=== PATIENT | male | born 1945 | race Caucasian/White ===

== ENCOUNTER 2017-02-10 18:18 | Inpatient (IN) | payer MEDICARE, OTHER ==
[~2017-02-10] VITALS: Ht 175.3 cm; Wt 105.5 kg
[~2017-02-10 18:18] MED LIST: ASPI-664 PO; ATOR20TA38 PO; FURO40TA4 PO; GLIM4TAB PO; ISOS60TA PO; LOSA25TA5 PO; NIT4 SL; RIVA15TA PO; SPIR25TA PO
[2017-02-10] MEDS ORDERED: NITROGLYCERIN 2% 1 GM OINT PKT TD STA (18:28)
[2017-02-10] MEDS ORDERED: ASPIRIN 81 MG TAB PO STA (18:28)
[2017-02-10] MEDS ORDERED: NITROGLYCERIN (SL) 0.4 MG TAB SL PRN (18:30)
[2017-02-10 19:05] LABS: BASOPHIL # 0.1 10^3/ul (0.0-0.1); BASOPHILS % 0.7 % (0.0-2.0); EOSINOPHILS # 0.3 10^3/ul (0.0-0.5); EOSINOPHILS % 3.3 % (0.0-7.0); HEMOGLOBIN 15.7 g/dl (14.0-18.0); LYMPHOCYTES # 2.9 10^3/ul (0.8-2.9); LYMPHOCYTES % 34.7 % (15.0-51.0); MEAN CORPUSCULAR HGB CONC 33.4 g/dl (32.0-37.0); MEAN CORPUSCULAR VOLUME 95.9 fl (82.0-101.0); MEAN PLATELET VOLUME 11.4 fl (7.4-10.4); MONOCYTE # 0.7 10^3/ul (0.3-0.9); MONOCYTES % 8.4 % (0.0-11.0); NEUTROPHIL # 4.3 10^3/ul (1.6-7.5); NEUTROPHILS % 52.2 % (39.0-77.0); PLATELET COUNT 144 10^3/UL (140-415); RED CELL DISTRIBUTION WIDTH 13.6 % (11.5-14.5); WHITE BLOOD COUNT 8.3 10^3/ul (4.8-10.8)
[2017-02-10 19:19] LABS: ANION GAP 19 (8-16); BLOOD UREA NITROGEN 36 mg/dl (7-20); CALCIUM 8.8 mg/dl (8.4-10.2); CARBON DIOXIDE 24 mmol/L (21-31); CHLORIDE 107 mmol/L (97-110); CREATININE 1.48 mg/dl (0.61-1.24); GLUCOSE 204 mg/dl (70-220); POTASSIUM 4.3 mmol/L (3.5-5.1); SODIUM 146 mmol/L (135-144)
[2017-02-10 19:31] LABS: INR 1.17; PT RATIO 1.2
[2017-02-10 19:32] LABS: PARTIAL THROMBOPLASTIN TIME 30.5 Sec (25.0-35.0)
[2017-02-10 19:33] LABS: TROPONIN-I < 0.012 ng/ml (0.00-0.12)
--- NOTE | 2017-02-10 19:47 | ERA ---
ER Documentation Chief Complaint Date/Time DATE: 02/10/17 TIME: 19:45 Chief Complaint CHEST PAIN, SOB, ONSET 1 DAY HPI Patient is a 71-year-old male with coronary disease, hypertension, and diabetes who presents with chest pain. The chest pain started yesterday and has been constant. It is left-sided and associated with shortness of breath. The patient has had no treatment as of yet. Upon review of old medical records this is the patient's eighth visit to the ER since 2007. ROS All systems reviewed and are negative except as per history of present illness. Medications Home Meds Active Scripts Spironolactone* (Aldactone*) 25 Mg Tablet, 12.5 MG PO DAILY, #30 TAB Prov:DANNY LANE MD 04/11/16 Aspirin* (Aspirin* EC) 81 Mg Tablet.dr, 81 MG PO DAILY, #30 Prov:DANNY LANE MD 04/11/16 Rivaroxaban* (Xarelto*) 15 Mg Tablet, 15 MG PO WITH DINNER, #30 TAB Prov:DANNY LANE MD 04/11/16 Losartan Potassium* (Losartan Potassium*) 25 Mg Tablet, 25 MG PO BID, #60 TAB Prov:DANNY LANE MD 04/11/16 Nitroglycerin* (Nitrostat*) 0.4 Mg Tab.subl, 0.4 MG SL Q5MIN Y for CHEST PAIN, # 30 BOTTLE Prov:DANNY LANE MD 04/11/16 Atorvastatin Calcium* (Atorvastatin Calcium*) 20 Mg Tablet, 20 MG PO HS, #30 TAB Prov:DANNY LANE MD 04/11/16 Glimepiride* (Glimepiride*) 4 Mg Tablet, 4 MG PO DAILY, #30 TAB Prov:DANNY LANE MD 04/11/16 Isosorbide Mononitrate* (Isosorbide Mononitrate*) 60 Mg Tab.er.24h, 60 MG PO DAILY, #30 Prov:DANNY LANE MD 04/11/16 Furosemide (Lasix) 40 Mg Tab, 40 MG PO DAILY, #30 Prov:DANNY LANE MD 04/11/16 Allergies Allergies: Coded Allergies: No Known Allergy (Verified , 04/07/16) PMhx/Soc History of Surgery: Yes (CABG 2000) Anesthesia Reaction: No Hx Neurological Disorder: No Hx Respiratory Disorders: No Hx Cardiac Disorders: Yes (PACEMAKER INSERTION) Hx Psychiatric Problems: No Hx Miscellaneous Medical Probl: Yes (DYSLIPIDEMIA) Hx Alcohol Use: No Hx Substance Use: No Hx Tobacco Use: No FmHx Family History: coronary disease Physical Exam Vitals Vital Signs Date Time Temp Pulse Resp B/P Pulse Ox O2 Delivery O2 Flow Rate FiO2 02/10/17 18:51 64 18 145/88 94 02/10/17 18:21 98.4 72 17 134/70 96 Physical Exam Const: No acute distress Head: Atraumatic Eyes: Normal Conjunctiva ENT: Normal External Ears, Nose and Mouth. Neck: Full range of motion..~ No meningismus. Resp: Clear to auscultation bilaterally Cardio: Regular rate and rhythm, no murmurs Abd: Soft, non tender, non distended. Normal bowel sounds Skin: No petechiae or rashes Back: No midline or flank tenderness Ext: No cyanosis, or edema Neur: Awake and alert Psych: Normal Mood and Affect Result Diagram: 02/10/17183902/10/171839 Results 24 hrs Laboratory Tests Test 02/10/17 18:40 White Blood Count 8.310^3/ul Red Blood Count 4.9010^6/ul Hemoglobin 15.7g/dl Hematocrit 47.0% Mean Corpuscular Volume 95.9fl Mean Corpuscular Hemoglobin 32.0pg Mean Corpuscular Hemoglobin Concent 33.4g/dl Red Cell Distribution Width 13.6% Platelet Count 72489^3/UL Mean Platelet Volume 11.4fl Neutrophils % 52.2% Lymphocytes % 34.7% Monocytes % 8.4% Eosinophils % 3.3% Basophils % 0.7% Nucleated Red Blood Cells % 0.0/100WBC Neutrophils # 4.310^3/ul Lymphocytes # 2.910^3/ul Monocytes # 0.710^3/ul Eosinophils # 0.310^3/ul Basophils # 0.110^3/ul Nucleated Red Blood Cells # 0.010^3/ul Prothrombin Time 15.0Sec Prothrombin Time Ratio 1.2 INR International Normalized Ratio 1.17 Activated Partial Thromboplast Time 30.5Sec Sodium Level 146mmol/L Potassium Level 4.3mmol/L Chloride Level 107mmol/L Carbon Dioxide Level 24mmol/L Anion Gap 19 Blood Urea Nitrogen 36mg/dl Creatinine 1.48mg/dl Glucose Level 204mg/dl Calcium Level 8.8mg/dl Troponin I < 0.012ng/ml Current Medications Medications (Trade) Dose Ordered Sig/Canelo Route PRN Reason Start Time Stop Time Status Last Admin Dose Admin Aspirin (Aspirin) 162 mg ONCE STAT PO 02/10/17 18:28 02/10/17 18:29 DC 02/10/17 18:40 Nitroglycerin (Nitroglycerin 2% Oint) 1 inch ONCE STAT TD 02/10/17 18:28 02/10/17 18:29 DC 02/10/17 18:41 Nitroglycerin (Nitroglycerin (Sl Tab) 0.4 Mg) 1 tab Q5M UP TO 3 DOSES PRN SL CHEST PAIN 02/10/17 18:30 02/10/17 18:41 Ondansetron HCl (Zofran Inj) 4 mg ER BRIDGE PRN IV NAUSEA AND/OR VOMITING 02/10/17 20:00 02/11/17 19:59 Acetaminophen (Tylenol Tab) 650 mg ER BRIDGE PRN PO MILD PAIN/FEVER 02/10/17 20:00 02/11/17 19:59 Procedures/MDM EKG #1 read by me: Rate/Rhythm: Regular rate and rhythm at a normal rate Intervals: Normal Impression: Diffuse ST depression EKG #2 read by me: Rate/Rhythm: Regular rate and rhythm at a normal rate Intervals: Normal Impression: Diffuse ST depression Chest x-ray shows no obvious pneumonia or pneumothorax per radiology. Patient is a 71-year-old male with multiple cardiac risk factors who presents with chest pain. The patient was given aspirin and nitroglycerin empirically. His EKG shows diffuse ST depressions and I am concerned about ischemia. He has high risk for acute coronary syndrome. I doubt pneumonia, pneumothorax, pulmonary embolism, or aortic dissection. The patient will be admitted to a telemetry bed under the care of Dr. Finn from the panel team as he has care first and they have authorized admission to the panel team. Departure Diagnosis: Primary Impression: Chest pain Qualified Code: R07.9 - Chest pain, unspecified type Condition: CESAR Hairston MD Feb 10, 2017 19:47
[2017-02-10] MEDS ORDERED: ONDANSETRON 4 MG INJ IV PRN (20:00)
[2017-02-10] MEDS ORDERED: ACETAMINOPHEN 325 MG TAB PO PRN (20:00)
--- NOTE | 2017-02-10 20:07 | RADRPT ---
PROCEDURE: XR Chest. CLINICAL INDICATION: Chest Pain. TECHNIQUE: Single frontal view of the chest was obtained COMPARISON: 04/07/2016 FINDINGS: The patient is again noted to be status post median sternotomy. The previously noted left chest wall dual lead pacemaker is again seen. The heart remains enlarged. The lungs are grossly clear given a somewhat suboptimal inspiration. The pleural spaces are also grossly clear. The bones and soft tissue show no acute change. IMPRESSION: 1. Stable cardiomegaly. 2. Stable left chest wall dual lead pacemaker. 3. Evidence of previous median sternotomy. 4. Otherwise, no acute abnormalities are identified. RPTAT:AAJJ Physician Rell Date Time Electronically viewed and signed by Francisco Javier Casillas Physician on 02/10/2017 20:07 /
[2017-02-10 20:30] VITALS: TEMP 98.4
[2017-02-10 21:57] VITALS: PULSE 58
[2017-02-10 22:09] VITALS: Ht 175.3 cm; Wt 105.5 kg
[2017-02-11] VITALS (14 sets, daily range): BP systolic 106–131; BP diastolic 60–81; PULSE 52–88; RESP 15–20
[2017-02-11] MEDS ORDERED: ACETAMINOPHEN 325 MG TAB PO PRN (01:00)
[2017-02-11] MEDS ORDERED: NITROGLYCERIN (SL) 0.4 MG TAB SL PRN (01:00)
[2017-02-11] MEDS ORDERED: ONDANSETRON 4 MG INJ IV PRN (01:00)
[2017-02-11] MEDS ORDERED: morphine 2 MG INJ IV PRN (01:00)
[2017-02-11 01:38] LABS: TROPONIN-I 0.012 ng/ml (0.00-0.12)
[2017-02-11] MEDS: ACCU-CHEK XX SCH (01:43)
[2017-02-11 01:50] LABS: CK-MB 1.49 ng/ml (0.0-2.4)
--- NOTE | 2017-02-11 02:37 | HP ---
Date/Time of Note Date/Time of Note DATE: 02/11/17 TIME: 02:13 Assessment/Plan VTE Prophylaxis VTE Prophylaxis Intervention: other (Xarelto) Lines/Catheters IV Catheter Type (from Nrs): Saline Lock Assessment/Plan Chief Complaint/Hosp Course 1. Chest pain, rule out ACS -First 2 troponins so far are negative. EKG shows diffuse ST depression -Plan is to check 1 more troponin and continue home medications, which include Plavix, beta-bret, ACEI, statin and nitro. He will be placed on oxygen. -will obtain a 2D echo and place a cardiology consult 2. History of CAD status post CABG -Continue home medications 3. History of ischemic cardiomyopathy, with EF of 40% in 2016, s/p AICD -Management as above 4. History of A. fib, currently in sinus -Continue beta-bret and Xarelto 5. Hypertension -Continue home meds with adjustment as needed 6. Type 2 diabetes -will check A1c in a.m. -Insulin while in-house 7. Dyslipidemia -We will check lipid panel. Continue statin 8. CKD -Monitor kidney function. Avoid nephrotoxins. Will place a nephrology consult 9. History of liver cirrhosis, likely secondary to hep B -No sign of decompensation or ascites on physical exam. Denied GI bleed -Continue Lasix and Aldactone 10. Mild hypernatremia -Monitor for now. Will check a.m. lab DVT ppx: Continue home Xarelto GI ppx: We will place on PPI, especially given he is on antiplatelets and a blood thinner Problems: HPI/ROS Admit Date/Time Admit Date/Time Feb 10, 2017 at 19:36 Hx of Present Illness This is a 71-year-old male with past medical history of coronary artery disease status post CABG, ischemic cardiomyopathy, AICD placement, atrial fibrillation, hypertension, dyslipidemia, liver cirrhosis and history of hepatitis B, who presents to [facility] c/o chest pain 1 day. Pain is left- sided, nonradiating and associated with shortness of breath. Denied palpitations, lightheadedness, nausea, vomiting or diaphoresis. When presented to the ER, vitals were within acceptable range. Lab shows a sodium of 146, BUN 36, creatinine 1.48 otherwise the rest of CBC and a CMP are within acceptable range. First 2 troponins so far are negative. EKG shows diffuse ST depression. Chest x-ray shows clear lungs. He was given nitro and aspirin in the ER. Patient was last admitted here in 2016 for chest pain. At that time she was seen by the graphic design manager, Dr. Cooley and had a 2D echo which showed EF of 40% and also had a Lexiscan nuclear stress test with the following results: 1. Baseline EKG showed atrial fibrillation, marked ST-T abnormality and inferolateral ischemia. Heart rate at baseline is 62, blood pressure 127/64, heart rate at peak of stress is 85. 2. No significant ischemic ST changes noted from the baseline abnormalities. 3. No significant arrhythmia is noted from the baseline atrial fibrillation. . PMH/Family/Social Past Medical History coronary artery disease status post CABG, ischemic cardiomyopathy, AICD placement, atrial fibrillation, hypertension, dyslipidemia, liver cirrhosis, hep B . Past Surgical History Past Surgical Hx: coronary bypass surgery Social History Alcohol Use: none Smoking Status: Never smoker Drug Use: none Exam/Review of Systems Vital Signs Vitals Vital Signs Date Time Temp Pulse Resp B/P Pulse Ox O2 Delivery O2 Flow Rate FiO2 02/11/17 00:32 98.0 63 18 129/62 98 02/10/17 20:30 Room Air 02/10/17 19:50 2 Exam Constitutional: alert, oriented Head: atraumatic, normocephalic Eyes: EOMI, PERRL Respiratory: clear to auscultation, normal air movement Cardiovascular: nl pulses, regular rate and rhythm Gastrointestinal: non-tender, soft Extremities: normal pulses Labs Result Diagram: 02/10/17 18402/10/17 184 Medications Medications Current Medications Ondansetron HCl (Zofran Inj) 4 mg Q6H PRN IV NAUSEA AND/OR VOMITING; Start 02/11 at 01:00 Morphine Sulfate (morphine) 2 mg Q4H PRN IV chest pain; Start 02/11/17 at 01:00 Acetaminophen (Tylenol Tab) 650 mg Q6H PRN PO PAIN AND OR ELEVATED TEMP; Start 02/11/17 at 01:00 Insulin Glargine (Lantus) 10 unit DAILY@08 SC ; Start 02/11/17 at 08:00 Diagnostic Test (Pha) (Accu-Chek) 1 ea 02 XX ; Start 02/11/17 at 02:00 Aspirin (Halfprin) 81 mg DAILY PO ; Start 02/11/17 at 09:00 Atorvastatin Calcium (Lipitor) 20 mg HS PO ; Start 02/11/17 at 21:00 Furosemide (Lasix) 40 mg DAILY PO ; Start 02/11/17 at 09:00 Isosorbide Mononitrate (Imdur) 60 mg DAILY PO ; Start 02/11/17 at 09:00 Losartan Potassium (Cozaar) 25 mg BID PO ; Start 02/11/17 at 09:00 Nitroglycerin (Nitroglycerin (Sl Tab) 0.4 Mg) 0.4 tab Q5M PRN SL CHEST PAIN; Start 02/11/17 at 01:00 Spironolactone (Aldactone) 12.5 mg DAILY PO ; Start 02/11/17 at 09:00 TATE CHANCE MD Feb 11, 2017 02:31
[2017-02-11 06:45] LABS: BASOPHIL # 0.1 10^3/ul (0.0-0.1); BASOPHILS % 0.9 % (0.0-2.0); EOSINOPHILS # 0.3 10^3/ul (0.0-0.5); EOSINOPHILS % 3.3 % (0.0-7.0); HEMATOCRIT 50.8 % (42.0-52.0); HEMOGLOBIN 16.3 g/dl (14.0-18.0); LYMPHOCYTES # 2.4 10^3/ul (0.8-2.9); LYMPHOCYTES % 27.3 % (15.0-51.0); MEAN CORPUSCULAR HGB CONC 32.1 g/dl (32.0-37.0); MEAN CORPUSCULAR VOLUME 96.8 fl (82.0-101.0); MONOCYTE # 0.8 10^3/ul (0.3-0.9); MONOCYTES % 8.9 % (0.0-11.0); NEUTROPHIL # 5.2 10^3/ul (1.6-7.5); NEUTROPHILS % 58.8 % (39.0-77.0); PLATELET COUNT 133 10^3/UL (140-415); POSITIVE DIFF @See below; RED BLOOD COUNT 5.25 10^6/ul (4.70-6.10); RED CELL DISTRIBUTION WIDTH 13.7 % (11.5-14.5); WHITE BLOOD COUNT 8.8 10^3/ul (4.8-10.8)
[2017-02-11 07:12] LABS: ALBUMIN 4.2 g/dl (3.3-4.9); ALBUMIN/GLOBULIN RATIO 1.2; BILIRUBIN,INDIRECT 0.3 mg/dl (0-1.1); BILIRUBIN,TOTAL 0.3 mg/dl (0.2-1.3); CALCIUM 9.2 mg/dl (8.4-10.2); CREATININE 1.23 mg/dl (0.61-1.24); MAGNESIUM 2.1 mg/dl (1.7-2.5); PHOSPHORUS 3.5 mg/dl (2.5-4.9); POTASSIUM 4.3 mmol/L (3.5-5.1); TOTAL PROTEIN 7.7 g/dl (6.1-8.1)
[2017-02-11 07:16] LABS: TROPONIN-I 0.025 ng/ml (0.00-0.12)
[2017-02-11 07:25] LABS: CK-MB 1.88 ng/ml (0.0-2.4)
[2017-02-11] MEDS: INSULIN ASPART [NOVOLOG] 3 ML PEN SC SCH ×4 (07:55→21:00)
--- NOTE | 2017-02-11 09:05 | CONS ---
DATE OF ADMISSION: 02/10/2017 DATE OF CONSULTATION: 02/11/2017 REASON FOR CONSULTATION: Acute kidney injury. REQUESTING PHYSICIAN: Dr. Finn. HISTORY OF PRESENT ILLNESS: This is a 71-year-old male with a past medical history of coronary disease status post CABG, history of cardiomyopathy, history of AICD placement, history of liver cirrhosis, history of diabetes, hypertension, AFib, who presents to [facility] with chest pain. The patient the pains were left-sided, nonradiating, shortness of breath. As a result, he came to the emergency room and upon arrival, the patient had a chest x-ray, which showed no acute findings. The patient's laboratory data showed a BUN 36, creatinine 1.48, and sodium 146. In the emergency room patient was given aspirin, nitroglycerin and admitted to Telemetry for evaluation. In terms of patient's renal history, the patient appears to have underlying chronic kidney disease with baseline creatinine ranging from 1.2-1.4 mg/dL. Patient is on diuretic therapy and ARB in an outpatient setting. He denies any hemoptysis symptoms or hematochezia. PAST MEDICAL HISTORY: As stated above. History of coronary artery disease, CABG, cardiomyopathy, AFib, hypertension, diabetes, cirrhosis, hepatitis. PAST SURGICAL HISTORY: CABG. SOCIAL HISTORY: Does not actively drink, smoke or do drugs. MEDICATION: Reviewed. FAMILY HISTORY: Noncontributory. ALLERGIES: NONE. REVIEW OF SYSTEMS: 14-point review of systems conducted. Pertinent positives in HPI, otherwise negative. PHYSICAL EXAMINATION: VITAL SIGNS: Blood pressure is 131/71, respirations 19, pulse 50, temperature 98.0 HEENT: Head is normocephalic. Pupils are reactive to light. NECK: Supple. HEART: Regular rate. LUNGS: Diminished breath sounds at the base. ABDOMEN: Soft, nontender to palpation. No rebound or guarding. EXTREMITIES: Negative for clubbing, cyanosis, no edema. DERMATOLOGIC: No rashes. MUSCULOSKELETAL: No joint effusions. NEUROLOGIC: No focal deficits. LABORATORY: Sodium 145, potassium 4.3, BUN 33, creatinine 1.23. White count 8.9, hemoglobin 16.3, platelet count 133. ASSESSMENT AND PLAN: This is a 71-year-old male presents with: 1. Nonoliguric acute kidney injury on top of chronic kidney disease stage 3 with baseline creatinine 1.2 and 1.4 mg/dL. Etiology of acute kidney injury is likely secondary to hemodynamics, diuretics, ARB effect. The patient's renal function has improved with supportive care. At this point, continue current treatment plan. Will do a full evaluation by checking a UA with microanalysis. We will check urine electrolytes. Would continue ARB and diuretic therapy at this time. Would otherwise continue supportive care. Renally dose medications for nephrotoxins. 2. Hyponatremia. Patient has a free water deficit of approximately 1 L. Will encourage free water intake. 3. Mineral bone disorder. Monitor calcium and phosphorus levels. 4. Chest pain. Patient being ruled out for acute coronary syndrome. Continue to check serial troponins. 5. History of chronic disease, cardiomyopathy. Continue current medical management. Follow up Cardiology. 6. AFib, currently in sinus rhythm. Continue medical management. 7. Hypertension. Blood pressure controlled. Continue current treatment plan. 8. Continue statin therapy. 9. History of cirrhosis. The patient appears compensated. Continue current medical management. Thank you, Dr. Finn for this interesting consult. It will be a pleasure to follow the patient with you throughout the hospital course. Dictated By: Lenny Jacob DO /terell/raciel /Document#: [id number]
[2017-02-11] MEDS: SPIRONOLACTONE 25 MG TAB PO SCH (09:13)
[2017-02-11] MEDS: FUROSEMIDE 40 MG TAB PO SCH (09:14)
[2017-02-11] MEDS: ASPIRIN (EC) 81 MG TAB PO SCH (09:14)
[2017-02-11] MEDS: ISOSORBIDE MONONITRATE(SR)60 MG TAB PO SCH (09:14)
[2017-02-11] MEDS: LOSARTAN 25 MG TAB PO SCH ×2 (09:15→22:01)
[2017-02-11] MEDS ORDERED: DEXTROSE 50% 50 ML SYRINGE IV PRN ×2 (10:00)
[2017-02-11] MEDS ORDERED: GLUCOSE GEL 15 GRAM TUBE PO PRN ×2 (10:00)
[2017-02-11] MEDS ORDERED: GLUCOSE GEL 15 GRAM TUBE BUCCAL PRN (10:00)
[2017-02-11] MEDS ORDERED: GLUCAGON 1 MG INJ IM PRN (10:00)
[2017-02-11] MEDS: INSULIN GLARGINE [LANtus] 3 ML PEN SC SCH (10:17)
--- NOTE | 2017-02-11 10:48 | PN ---
Date/Time of Note Date/Time of Note DATE: 02/11/17 TIME: 10:40 Assessment/Plan VTE Prophylaxis VTE Prophylaxis Intervention: other (Xarelto) Lines/Catheters IV Catheter Type (from Nrs): Saline Lock Assessment/Plan Chief Complaint/Hosp Course 1. Chest pain. Rule out acute coronary syndrome. So far negative troponin. Pending echocardiogram. -Continue aspirin, nitro SL PRN, morphine PRN -Pending cardiology eval 2.History of CAD status post CABG -On aspirin, and Plavix, beta-bret, ACEI, statin 3. History of ischemic cardiomyopathy, with EF of 40% in 2016, s/p AICD -Management as above 4. History of A. fib. -Continue beta-bret and Xarelto 5. Hypertension -Continue home meds with adjustment as needed 6. Type 2 diabetes -Accuchecks/ insulin sliding scale. Follow-up A1c. 7. Dyslipidemia -On statin. Follow-up lipid panel 8. Acute kidney injury on CKD -Monitor kidney function. Avoid nephrotoxins. Nephrology on board and will follow recommendations. 9. History of liver cirrhosis, likely secondary to hep B -No sign of decompensation or ascites on physical exam. -Continue Lasix and Aldactone DVT ppx: Patient already on Zaroxolyn. No further anticoagulation indicated Continue current medical management. Follow-up with cardiology recommendation. Case discussed with Problems: Subjective 24 Hr Interval Summary Free Text/Dictation He still reports left-sided chest pain. Denies palpitation, dizziness, shortness of breath, nausea, vomiting or other constitutional symptoms. EKG has been V-Paced Exam/Review of Systems Vital Signs Vitals Vital Signs Date Time Temp Pulse Resp B/P Pulse Ox O2 Delivery O2 Flow Rate FiO2 02/11/17 08:17 60 02/11/17 07:31 98.0 19 131/81 95 02/10/17 20:30 Room Air 02/10/17 19:50 2 Intake and Output 02/10/17 02/10/17 02/11/17 15:00 23:00 07:00 Intake Total 360 ml Output Total 400 ml Balance -40 ml Exam General: M[place] male, not in any acute distress . HEENT: Normocephalic, Atraumatic, No laceration or hematoma; Eyes: PEERL, Conjunctiva clear, Anicteric sclera Neck: Supple without any lymphadenopathy, nontender, no JVD, no carotid bruits, trachea midline, no thyromegaly Cardiac: Paced beats, regular rhythm and rate, no mumurs or gallop Pulmonary: Normal respiratory effort. Chest clear to auscultation bilaterally, no adventitious breath sounds GI: Abdomen normal to inspection. Soft, non tender, non- distended, no masses, no rebound tenderness or guarding. Bowel sounds active on all four quadrants Genitourinary: Deferred Extremities: No cyanosis, clubbing, or edema. Pulses [2+] bilaterally. Full ROM on all four extremities. No focal weakness appreciated. Neurologic: Alert to person, place, time, and situation. Affect appropriate, intact sensation. Skin: Clean,dry, and intact. No ecchymosis, no rashes, or lesions Results Result Diagram: 02/11/1717 02/11/1718 Results 24 hrs Laboratory Tests Test 02/10/17 18:40 02/11/17 00:35 02/11/17 06:17 02/11/17 06:18 White Blood Count 8.3 8.8 Red Blood Count 4.90 5.25 Hemoglobin 15.7 16.3 Hematocrit 47.0 50.8 Mean Corpuscular Volume 95.9 96.8 Mean Corpuscular Hemoglobin 32.0 31.0 Mean Corpuscular Hemoglobin Concent 33.4 32.1 Red Cell Distribution Width 13.6 13.7 Platelet Count 144 133 L Mean Platelet Volume 11.4 H 11.0 H Neutrophils % 52.2 58.8 Lymphocytes % 34.7 27.3 Monocytes % 8.4 8.9 Eosinophils % 3.3 3.3 Basophils % 0.7 0.9 Nucleated Red Blood Cells % 0.0 0.0 Neutrophils # 4.3 5.2 Lymphocytes # 2.9 2.4 Monocytes # 0.7 0.8 Eosinophils # 0.3 0.3 Basophils # 0.1 0.1 Nucleated Red Blood Cells # 0.0 0.0 Prothrombin Time 15.0 H Prothrombin Time Ratio 1.2 INR International Normalized Ratio 1.17 Activated Partial Thromboplast Time 30.5 Sodium Level 146 H 145 H Potassium Level 4.3 4.3 Chloride Level 107 102 Carbon Dioxide Level 24 28 Anion Gap 19 H 19 H Blood Urea Nitrogen 36 H 33 H Creatinine 1.48 H 1.23 Glucose Level 204 140 # Calcium Level 8.8 9.2 Troponin I < 0.012 0.012 0.025 Creatine Kinase 132 139 Creatine Kinase Index 1.1 1.4 Creatinine Kinase MB (Mass) 1.49 1.88 Hemoglobin A1c 6.9 H Phosphorus Level 3.5 Magnesium Level 2.1 Total Bilirubin 0.3 Direct Bilirubin 0.00 Indirect Bilirubin 0.3 Aspartate Amino Transf (AST/SGOT) 26 Alanine Aminotransferase (ALT/SGPT) 38 Alkaline Phosphatase Pending Total Protein 7.7 Albumin 4.2 Globulin 3.50 H Albumin/Globulin Ratio 1.20 Triglycerides Level 319 H Cholesterol Level 191 LDL Cholesterol, Calculated 89 HDL Cholesterol 38 Cholesterol/HDL Ratio 5.0 Test 02/11/17 07:53 Bedside Glucose 133 Medications Medications Current Medications Ondansetron HCl (Zofran Inj) 4 mg Q6H PRN IV NAUSEA AND/OR VOMITING; Start 02/11 at 01:00 Morphine Sulfate (morphine) 2 mg Q4H PRN IV chest pain; Start 02/11/17 at 01:00 Acetaminophen (Tylenol Tab) 650 mg Q6H PRN PO PAIN AND OR ELEVATED TEMP; Start 02/11/17 at 01:00 Insulin Glargine (Lantus) 10 unit DAILY@08 SC Last administered on 02/11/17 10: 17; Admin Dose 10 UNIT; Start 02/11/17 at 08:00 Diagnostic Test (Pha) (Accu-Chek) 1 ea 02 XX ; Start 02/11/17 at 02:00 Aspirin (Halfprin) 81 mg DAILY PO Last administered on 02/11/17 09:14; Admin Dose 81 MG; Start 02/11/17 at 09:00 Atorvastatin Calcium (Lipitor) 20 mg HS PO ; Start 02/11/17 at 21:00 Furosemide (Lasix) 40 mg DAILY PO Last administered on 02/11/17 09:14; Admin Dose 40 MG; Start 02/11/17 at 09:00 Isosorbide Mononitrate (Imdur) 60 mg DAILY PO Last administered on 02/11/17 09: 14; Admin Dose 60 MG; Start 02/11/17 at 09:00 Losartan Potassium (Cozaar) 25 mg BID PO Last administered on 02/11/17 09:15; Admin Dose 25 MG; Start 02/11/17 at 09:00 Nitroglycerin (Nitroglycerin (Sl Tab) 0.4 Mg) 0.4 tab Q5M PRN SL CHEST PAIN; Start 02/11/17 at 01:00 Spironolactone (Aldactone) 12.5 mg DAILY PO Last administered on 02/11/17t 09:13 ; Admin Dose 12.5 MG; Start 02/11/17 at 09:00 Miscellaneous Information 1 ea NOTE XX ; Start 02/11/17 at 10:00 Glucose (Glutose) 15 gm Q15M PRN PO DECREASED GLUCOSE; Start 02/11/17 at 10:00 Glucose (Glutose) 22.5 gm Q15M PRN PO DECREASED GLUCOSE; Start 02/11/17 at 10:00 Dextrose (D50w Syringe) 25 ml Q15M PRN IV DECREASED GLUCOSE; Start 02/11/17 at 10:00 Dextrose (D50w Syringe) 50 ml Q15M PRN IV DECREASED GLUCOSE; Start 02/11/17 at 10:00 Glucagon (Glucagen) 1 mg Q15M PRN IM DECREASED GLUCOSE; Start 02/11/17 at 10:00 Glucose (Glutose) 15 gm Q15M PRN BUCCAL DECREASED GLUCOSE; Start 02/11/17 at 10: 00 SHERRY KNIGHT NP Feb 11, 2017 10:48
--- NOTE | 2017-02-11 15:48 | RADRPT ---
Echocardiogram Report Patient Name: KACEY HERNANDEZ Gender: Male Date: 1945 Study Date: 11-Feb-2017 Otc Clerk: Bobby Gaston [facility] Location: [id number] Ref. Physician: NYA GUTIERREZ Quality: Adequate Procedures: Transthoracic echocardiogram with complete 2D, M-Mode, and doppler examination. Indications: Evaluate Left Ventricular function. 2D/M Mode Doppler Measurement Value Normal Ranges Measurement Value Normal Ranges LVIDd 2D 5.2 3.5 - 5.6 cm AV Peak Doug 1.0 m/sec LVIDs 2D 4.1 2.1 - 4.1 cm AV Peak PG 4.0 mmHg FS 2D 20.9 % LVOT Peak Doug 0.9 m/sec LVPWd 2D 1.3 0.6 - 1.1 cm LVOT Peak PG 3.0 mmHg IVSd 2D 1.3 0.6 - 1.1 cm MV E Peak Doug 0.7 m/sec IVS/LVPW 2D 1.0 MV A Peak Doug 0.4 m/sec AoR Diam 2D 3.5 2.0 - 3.7 cm MV E/A 2.0 LA/Ao 2D 1 0 - 1 MV Decel Time 250 msec EDV 2D 141.0 cm3 MV E/A 2.0 ESV 2D 69.9 cm3 TR Peak Doug 2.6 m/sec LA Dimen 2D 4.7 2.3 - 4.0 cm TR Peak PG 26.0 mmHg RVSP 36.0 mmHg Findings Left Ventricle: Normal left ventricular cavity size. Mild concentric left ventricular hypertrophy. Moderate global left ventricular systolic dysfunction. Ejection fraction is visually estimated at 3040 %. Abnormal Diastolic Function. Right Ventricle: Normal right ventricular size. Normal right ventricular systolic function. Pacemaker right heart. Left Atrium: There is moderate enlargement of left atrium. Right Atrium: There is mild enlargement of right atrium. Mitral Valve: Mild mitral leaflet calcification. Mild mitral annular calcification. Trace mitral regurgitation. Aortic Valve: Aortic sclerosis without stenosis. Aortic valve opens normally. Trace aortic valve regurgitation. Tricuspid Valve: Normal appearance of the tricuspid valve. Estimated peak PA systolic pressure 36 mmHg. There is mild tricuspid regurgitation. Pulmonic Valve: Pulmonic valve not well visualized. There is trace pulmonic regurgitation. Pericardium: Normal pericardium with no significant pericardial effusion. Aorta: Normal aortic root. IVC: Normal size and normal respiratory collapse consistent with normal right atrial pressure. Conclusions 1.Normal left ventricular cavity size. Mild concentric left ventricular hypertrophy. Moderate global left ventricular systolic dysfunction. Ejection fraction is visually estimated at 30-40 %. Abnormal Diastolic Function. 2.There is moderate enlargement of left atrium. 3.There is mild enlargement of right atrium. 4.Mild mitral leaflet calcification. Mild mitral annular calcification. Trace mitral regurgitation. 5.Normal appearance of the tricuspid valve. Estimated peak PA systolic pressure 36 mmHg. There is mild tricuspid regurgitation. 6.Aortic sclerosis without stenosis. Aortic valve opens normally. Trace aortic valve regurgitation. Electronically Signed By: Matthew Cooley 11-Feb-2017 15:47:36 -0700 Patient Name: KACEY HERNANDEZ Study Date: 11-Feb-2017 [id number]
[2017-02-11 17:11] LABS: ADD UMIC YES; UR ASCORBIC ACID NEGATIVE (NEGATIVE); UR BILIRUBIN (Dip) NEGATIVE (NEGATIVE); UR BLOOD (Dip) NEGATIVE (NEGATIVE); UR CLARITY CLEAR (CLEAR); UR COLOR STRAW (YELLOW); UR GLUCOSE (Dip) 2+ mg/dL (NEGATIVE); UR KETONES (Dip) NEGATIVE (NEGATIVE); UR LEUKOCYTE ESTERASE (Dip) 2+ Leu/ul (NEGATIVE); UR NITRITE (Dip) NEGATIVE (NEGATIVE); UR RBC 1 /HPF (0-5); UR TOTAL PROTEIN (Dip) NEGATIVE (NEGATIVE); UR UROBILINOGEN (Dip) NEGATIVE (NEGATIVE)
[2017-02-11] MEDS ORDERED: RIVAROXABAN 15 MG TABLET PO SCH (17:55)
[2017-02-11] MEDS ORDERED: ATORVASTATIN 20 MG TAB PO SCH (21:00)
[2017-02-12] VITALS (8 sets, daily range): BP systolic 115–140; BP diastolic 67–82; PULSE 60–85; RESP 17–20
[2017-02-12] MEDS: ACCU-CHEK XX SCH (00:12)
[2017-02-12 06:30] LABS: BASOPHIL # 0.1 10^3/ul (0.0-0.1); BASOPHILS % 0.7 % (0.0-2.0); EOSINOPHILS # 0.3 10^3/ul (0.0-0.5); EOSINOPHILS % 3.5 % (0.0-7.0); HEMATOCRIT 49.7 % (42.0-52.0); HEMOGLOBIN 16.5 g/dl (14.0-18.0); LYMPHOCYTES # 2.8 10^3/ul (0.8-2.9); LYMPHOCYTES % 34.3 % (15.0-51.0); MEAN CORPUSCULAR HEMOGLOBIN 31.5 pg (29.0-33.0); MEAN CORPUSCULAR HGB CONC 33.2 g/dl (32.0-37.0); MEAN PLATELET VOLUME 11.3 fl (7.4-10.4); MONOCYTE # 0.6 10^3/ul (0.3-0.9); MONOCYTES % 6.8 % (0.0-11.0); NEUTROPHIL # 4.5 10^3/ul (1.6-7.5); PLATELET COUNT 135 10^3/UL (140-415); POSITIVE DIFF @See below; RED BLOOD COUNT 5.23 10^6/ul (4.70-6.10); RED CELL DISTRIBUTION WIDTH 13.6 % (11.5-14.5); WHITE BLOOD COUNT 8.3 10^3/ul (4.8-10.8)
[2017-02-12 06:54] LABS: CALCIUM 9.2 mg/dl (8.4-10.2); CREATININE 1.29 mg/dl (0.61-1.24); PHOSPHORUS 3.4 mg/dl (2.5-4.9); POTASSIUM 4.4 mmol/L (3.5-5.1)
[2017-02-12] MEDS: INSULIN ASPART [NOVOLOG] 3 ML PEN SC SCH ×2 (07:55→11:50)
--- NOTE | 2017-02-12 07:59 | CONS ---
DATE OF ADMISSION: 02/10/2017 DATE OF CONSULTATION: 02/11/2017 CARDIOLOGY CONSULTATION REFERRING PHYSICIAN: Dr. Finn REASON FOR CONSULTATION: Chest pain, abnormal EKG. HISTORY OF PRESENT ILLNESS: Thank you for the courtesy to see your patient. He is an extremely poor historian, is here with his . Discussion with the patient's regular thermal intelligence analyst, and review of the old chart. This is a pleasant 71-year-old Romanian gentleman with an extensive history of coronary artery disease who was recently complaining of chest pain. The patient said that he had chest pain, sharp, left- sided, poking yesterday. The pain has resolved now. The patient says that he follows regularly with his thermal intelligence analyst, he could not remember the name, but as spoke with his , explained that it is which I spoke to personally. The patient's pain has resolved. Now denies any dyspnea, PND, orthopnea to me at this point. He has been ruled out already for myocardial infarction, wants to go home. PAST MEDICAL HISTORY: 1. History of coronary artery disease status post coronary artery bypass graft in [facility]. 2. History of ICD placement. 3. Ischemic cardiomyopathy. 4. Congestive heart failure. 5. Dyslipidemia. 6. Atrial fibrillation. 7. Cirrhosis. 8. Hepatitis. MEDICATION: As per medication reconciliation list. Reviewed. SOCIAL HISTORY: The patient has quit smoking in 2000. ALLERGIES: NO REPORTED DRUG ALLERGIES. FAMILY HISTORY: Denies any history of early coronary artery disease. PAST SURGICAL HISTORY: 1. He is status post bypass surgery in [facility]. 2. Coronary angiography done here a few years ago by myself. 3. History of possibly PCI about a year ago per his 's report. REVIEW OF SYSTEMS: As above mentioned. PHYSICAL EXAMINATION: VITAL SIGNS: Temperature 98.1, heart rate 67, blood pressure 106/70, respiratory rate of 20, sating 94%. GENERAL: Normocephalic, atraumatic. Obese gentleman. HEENT: Pupils equal. CARDIAC: Irregular irregular. Systolic murmur. CHEST: No wheeze or rhonchi. ABDOMEN: Soft, nontender. EXTREMITIES: No edema. NEUROLOGIC: He is awake, alert, responsive, appropriate. PSYCH: Calm and pleasant. LABORATORY: Sodium 145, potassium 4.3, BUN 33, creatinine 1.23, glucose 140, hemoglobin 6.9. Troponins have been negative x3. Cholesterol 191, LDL 89, HDL 38. Triglycerides of 319. TSH is 2.3. EKG showed atrial fibrillation with marked inferolateral ischemia. Review of the old chart shows the patient's EKG on 04/09/2016 also at that time was read per . was also stated the patient had atrial fibrillation, moderate ST-T wave abnormalities, possible inferolateral injury, ischemia, abnormal EKG. Echocardiogram showed ejection fraction of 30-40% but technically difficult study. Review of the old chart showed the stress test done April 2016 had shown ejection fraction between 20-50%. There is a moderate sized nonreversible defect in the inferolateral lei. Review of the old chart shows that the patient had angiography done by myself in April 2013 which showed left vein was a large vessel. LAD had fluid at the mid level. MITCHELL to the LAD was patent. LAD however becomes very small after that. MITCHELL was also and diffuse disease noted. Left circumflex artery was not dominant. Proximally had about 90% stenosis. First obtuse marginal had 95% stenosis. Saphenous vein graft to the diagonal appeared to be patent. Saphenous vein to the obtuse marginal also appeared to be patent. Right coronary artery stent appeared to be patent. Has right to left collaterals. ASSESSMENT AND PLAN: 1. Chest pain syndrome. Myocardial infarction was ruled out. 2. History of coronary artery disease, status post coronary artery bypass. 3. History of PCI. 4. Diabetes. 5. Dyslipidemia. 6. Hypertension. 7. Congestive heart failure, chronic, secondary to systolic heart failure. 8. Ischemic cardiomyopathy with abnormal EKG and some atrial fibrillation. RECOMMENDATION: The patient multiple cardiac enzymes which have been negative. At this point he is chest pain free and he wants to go home. At this point I agree to discharge the patient home. I discussed with his thermal intelligence analyst as well. The patient to follow up with his thermal intelligence analyst within the next 1 or 2 days for further workup. Thank you for this referral. Dictated By: Matthew Cooley MD /[email or web address]/raciel /Document#: [id number] CC: Francisco Finn MD;*End*
[2017-02-12] MEDS: INSULIN GLARGINE [LANtus] 3 ML PEN SC SCH (08:42)
--- NOTE | 2017-02-12 09:29 | PN ---
DATE: 02/12/2017 SUBJECTIVE DATA: The patient is stable. No acute events overnight. No longer complaining of chest pain. OBJECTIVE DATA: VITAL SIGNS: Blood pressure 140/81, respirations 19, pulse 67, temperature 97.9. HEENT: Head is normocephalic. NECK: Supple. HEART: Regular rate. LUNGS: Diminished breath sounds at the base. ABDOMEN: Soft, nontender to palpation. No rebound or guarding. EXTREMITIES: Negative for clubbing, cyanosis. No edema. DERMATOLOGIC: No rashes. MUSCULOSKELETAL: No joint effusion. NEUROLOGIC: No change in exam. The patient's medications have been reviewed. LABORATORY AND DIAGNOSTIC DATA: Sodium 141, potassium 4.4. BUN 28, creatinine 1.29. CBC within normal limits. Urinalysis shows a FENa of greater than 1 percent. No significant proteinuria. The patient has noted pyuria. ASSESSMENT AND PLAN: 1. Nonoliguric acute kidney injury on top of chronic kidney disease, stage 2, with previous baseline creatinine 1.2 to 1.4 mg/dL. Etiology is likely multifactorial secondary to hemodynamics, diuretics, and angiotensin receptor bret effect. The patient's renal function is fluctuating but overall stable around previous baseline. At this point continue current treatment plan. Continue supportive care and renally dose all medications. Please note, the patient's urinalysis shows evidence of pyuria, possibility of a urinary infection. Otherwise, the patient had a bland sediment. 2. Hypernatremia, improved. Continue to encourage free water intake. 3. Mineral bone disorder. Continue to monitor calcium and phosphorus levels. 4. Chest pain. The patient has been ruled out for acute coronary syndrome. Follow up with Cardiology. 5. History of cardiomyopathy. Continue current medical management. 6. Atrial fibrillation, currently in sinus rhythm. Continue current treatment plan. 7. Hypertension. Continue current blood pressure regimen. 8. Dyslipidemia. Continue statin therapy. 9. History of cirrhosis. The patient appears compensated. Continue current medical management. Dictated By: Lenny Jacob DO /terell/yaron /Document#: [id number]
[2017-02-12] MEDS: FUROSEMIDE 40 MG TAB PO SCH (10:19)
[2017-02-12] MEDS: SPIRONOLACTONE 25 MG TAB PO SCH (10:20)
[2017-02-12] MEDS: LOSARTAN 25 MG TAB PO SCH (10:20)
[2017-02-12] MEDS: ASPIRIN (EC) 81 MG TAB PO SCH (10:20)
[2017-02-12] MEDS: ISOSORBIDE MONONITRATE(SR)60 MG TAB PO SCH (10:21)
--- NOTE | 2017-02-12 12:50 | PDOCDIS ---
Discharge Instructions CONDITION Patient Condition: Stable HOME CARE INSTRUCTIONS: Special Diet: carb controlled FOLLOW UP/APPOINTMENTS Follow-up Plan 1.Follow up with primary care physician in 1 week If you don't have one please let someone know, we can give you resources that may help you pick one. You may also call your insurance company to assign one to you. Review your medication list with your nurse before leaving and if you need new prescriptions please let your nurse know. I may have made changes to your home medications or given you new prescriptions, please let your primary doctor know as well. Stay compliant with your medications and report any side effects to your PCP or pharmacist. Return to the ER if you have any concerns and cannot reach your doctors or call your insurance company, they usually have a nurse that can help you. 2. Call 911 or go to the nearest emergency room if experiencing loss of consciousness, dizziness, chest pain, shortness of breath, vomiting/abdominal pain, speech difficulties, motor weakness or any unusual symptoms. 3.Follow-up with outpatient chlorinator operator in 2 days SHERRY KNIGHT NP Feb 12, 2017 12:50
[2017-02-12 15:15] LABS: MICROALBUMIN 0.5 mg/dL
--- NOTE | 2017-02-12 15:48 | DS ---
Date/Time of Note Date/Time of Note DATE: 02/12/17 TIME: 15:43 Discharge Summary Admission/Discharge Info Admit Date/Time Feb 10, 2017 at 19:36 Discharge Date/Time Feb 12, 2017 at 13:49 Discharge Diagnosis 1. Chest pain, likely musculoskeletal. Resolved. ACS ruled out 2.History of CAD status post CABG 3. History of ischemic cardiomyopathy, with EF of 40% in 2016, s/p AICD 4. History of A. fib. 5. Hypertension 6. Type 2 diabetes 7. Dyslipidemia 8. Acute kidney injury on CKD 9. 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 2D echocardiogram. Conclusions 1. Normal left ventricular cavity size. Mild concentric left ventricular hypertrophy. Moderate global left ventricular systolic dysfunction. Ejection fraction is visually estimated at 30-40 %. Abnormal Diastolic Function. 2. There is moderate enlargement of left atrium. 3. There is mild enlargement of right atrium. 4. Mild mitral leaflet calcification. Mild mitral annular calcification. Trace mitral regurgitation. 5. Normal appearance of the tricuspid valve. Estimated peak PA systolic pressure 36 mmHg. There is mild tricuspid regurgitation. 6. Aortic sclerosis without stenosis. Aortic valve opens normally. Trace aortic valve regurgitation. 02/10/2017. Chest x-ray. IMPRESSION: 1. Stable cardiomegaly. 2. Stable left chest wall dual lead pacemaker. 3. Evidence of previous median sternotomy. 4. Otherwise, no acute abnormalities are identified. Hx of Present Illness Hospital Course This is a 71-year-old [place] male with a past medical history of coronary artery disease who is status post CABG, severe cardiomyopathy status post AICD placed, liver cirrhosis, type 2 diabetes, atrial fibrillation, hypertension, who was admitted to [facility] for evaluation of chest pain. Patient had initial troponin negative and EKG without any acute ST or T-wave changes. He was treated with aspirin, and nitroglycerin and was admitted to telemetry. Patient was resumed on home medication. He was evaluated by cardiology. Patient was also noted to have acute kidney injury on top of chronic kidney disease stage III and he also had nephrology evaluation. Medications were renally dosed. Renal function was monitored closely and remained at baseline. Patient was also monitored with regular blood sugar checks and insulin coverage. A1c was 6.9. Patient did not have any arrhythmias while he was hospitalized. Blood pressure was under control. Serial troponin negative. Echocardiogram with ejection fraction 30-40%. As per cardiology evaluation, ACS is ruled out with serial cardiac enzymes. Patient did not have any further chest pain. He was cleared for discharge with outpatient cardiology follow-up. Patient was able to tolerate diet and activities well. During the course of hospitalization,patient, patient's and family members wanted a hospice referral on this patient. Based on his congestive heart failure, multiple ER visit, we feel like it is appropriate to refer him for outpatient hospice evaluation as this is his choice. dairy farmworker was consulted and please refer to social media marketing analyst notes. Disposition: Patient will be discharged home today. He was instructed to follow -up with his primary care and mate ship as outpatient. Again, a hospice referral was done as per patient and family wishes for outpatient follow-up. Condition at time of discharge is stable. Approximately 60 minutes was spent in coordinating the discharge on this patient. Case discussed with Dr. Banda [employer] Meds Active Scripts Spironolactone* (Aldactone*) 25 Mg Tablet, 12.5 MG PO DAILY, #30 TAB Prov:DANNY LANE MD 04/11/16 Aspirin* (Aspirin* EC) 81 Mg Tablet., 81 MG PO DAILY, #30 Prov:DANNY LANE MD 04/11/16 Rivaroxaban* (Xarelto*) 15 Mg Tablet, 15 MG PO WITH DINNER, #30 TAB Prov:DANNY LANE MD 04/11/16 Losartan Potassium* (Losartan Potassium*) 25 Mg Tablet, 25 MG PO BID, #60 TAB Prov:DANNY LANE MD 04/11/16 Nitroglycerin* (Nitrostat*) 0.4 Mg Tab.subl, 0.4 MG SL Q5MIN Y for CHEST PAIN, # 30 BOTTLE Prov:DANNY LANE MD 04/11/16 Atorvastatin Calcium* (Atorvastatin Calcium*) 20 Mg Tablet, 20 MG PO HS, #30 TAB Prov:DANNY LANE MD 04/11/16 Glimepiride* (Glimepiride*) 4 Mg Tablet, 4 MG PO DAILY, #30 TAB Prov:DANNY LANE MD 04/11/16 Isosorbide Mononitrate* (Isosorbide Mononitrate*) 60 Mg Tab.er.24h, 60 MG PO DAILY, #30 Prov:DANNY LANE MD 04/11/16 Furosemide (Lasix) 40 Mg Tab, 40 MG PO DAILY, #30 Prov:DANNY LANE MD 04/11/16 Follow-up Plan HOME CARE INSTRUCTIONS: Special Diet: carb controlled FOLLOW UP/APPOINTMENTS Follow-up Plan 1.Follow up with primary care physician in 1 week If you don't have one please let someone know, we can give you resources that may help you pick one. You may also call your insurance company to assign one to you. Review your medication list with your nurse before leaving and if you need new prescriptions please let your nurse know. I may have made changes to your home medications or given you new prescriptions, please let your primary doctor know as well. Stay compliant with your medications and report any side effects to your PCP or pharmacist. Return to the ER if you have any concerns and cannot reach your doctors or call your insurance company, they usually have a nurse that can help you. 2. Call 911 or go to the nearest emergency room if experiencing loss of consciousness, dizziness, chest pain, shortness of breath, vomiting/abdominal pain, speech difficulties, motor weakness or any unusual symptoms. 3.Follow-up with outpatient mate ship in 2 days Primary Care Provider Mateo Maloney Pending Labs Laboratory Tests Test 02/11/17 16:45 02/11/17 17:16 02/11/17 22:03 02/12/17 06:00 Urine Color STRAW (YELLOW) Urine Clarity CLEAR (CLEAR) Urine pH 5.0 (5.0-9.0) Urine Specific [place] 1.010 (1.003-1.030) Urine Ketones NEGATIVEmg/dL (NEGATIVE) Urine Nitrite NEGATIVEmg/dL (NEGATIVE) Urine Bilirubin NEGATIVEmg/dL (NEGATIVE) Urine Urobilinogen NEGATIVEmg/dL (NEGATIVE) Urine Leukocyte Esterase 2+Jessie/ul (NEGATIVE) Urine Microscopic RBC 1/HPF (0-5) Urine Microscopic WBC 55/HPF (0-5) Urine Hemoglobin NEGATIVEmg/dL (NEGATIVE) Urine Random Creatinine 41mg/dL (20-370) Urine Random Sodium 130mmol/L (30-90) Urine Microalbumin 0.5mg/dL Urine Microalbumin/Creatinine Ratio 12 (<30) Urine Glucose 2+mg/dL (NEGATIVE) Urine Total Protein NEGATIVEmg/dl (NEGATIVE) Bedside Glucose 127mg/dL (70-220) 132mg/dL (70-220) White Blood Count 8.310^3/ul (4.8-10.8) Red Blood Count 5.2310^6/ul (4.70-6.10) Hemoglobin 16.5g/dl (14.0-18.0) Hematocrit 49.7% (42.0-52.0) Mean Corpuscular Volume 95.0fl (82.0-101.0) Mean Corpuscular Hemoglobin 31.5pg (29.0-33.0) Mean Corpuscular Hemoglobin Concent 33.2g/dl (32.0-37.0) Red Cell Distribution Width 13.6% (11.5-14.5) Platelet Count 49758^3/UL (140-415) Mean Platelet Volume 11.3fl (7.4-10.4) Neutrophils % 54.0% (39.0-77.0) Lymphocytes % 34.3% (15.0-51.0) Monocytes % 6.8% (0.0-11.0) Eosinophils % 3.5% (0.0-7.0) Basophils % 0.7% (0.0-2.0) Nucleated Red Blood Cells % 0.0/100WBC (0.0-0.0) Neutrophils # 4.510^3/ul (1.6-7.5) Lymphocytes # 2.810^3/ul (0.8-2.9) Monocytes # 0.610^3/ul (0.3-0.9) Eosinophils # 0.310^3/ul (0.0-0.5) Basophils # 0.110^3/ul (0.0-0.1) Nucleated Red Blood Cells # 0.010^3/ul (0.0-0.0) Sodium Level 141mmol/L (135-144) Potassium Level 4.4mmol/L (3.5-5.1) Chloride Level 100mmol/L (97-110) Carbon Dioxide Level 26mmol/L (21-31) Anion Gap 19 (8-16) Blood Urea Nitrogen 28mg/dl (7-20) Creatinine 1.29mg/dl (0.61-1.24) Glucose Level 152mg/dl (70-220) Calcium Level 9.2mg/dl (8.4-10.2) Phosphorus Level 3.4mg/dl (2.5-4.9) Magnesium Level 2.0mg/dl (1.7-2.5) Test 02/12/17 08:07 Bedside Glucose 162mg/dL (70-220) SHERRY KNIGHT V. HEALTH CARE SOCIAL WORKER Feb 12, 2017 15:48
== END 2017-02-12 13:49 | disposition home or self-care (01) | DRG 313 ==
LOC: E/R 18:18 → TEL 19:36
PROVIDERS: ADMIT Internal Medicine; ATTEND Internal Medicine
DX: R07.89 Other chest pain (principal); I25.10 Atherosclerotic heart disease of native coronary artery without angina pectoris; N17.9 Acute kidney failure, unspecified; E87.0 Hyperosmolality and hypernatremia; I50.22 Chronic systolic (congestive) heart failure; I13.0 Hypertensive heart and chronic kidney disease with heart failure and stage 1 through stage 4 chronic kidney disease, or unspecified chronic kidney disease; I48.2 Chronic atrial fibrillation; I51.7 Cardiomegaly; I25.5 Ischemic cardiomyopathy; E11.22 Type 2 diabetes mellitus with diabetic chronic kidney disease; N18.9 Chronic kidney disease, unspecified; E78.5 Hyperlipidemia, unspecified; E83.9 Disorder of mineral metabolism, unspecified; Z79.4 Long term (current) use of insulin; Z87.19 Personal history of other diseases of the digestive system; Z95.1 Presence of aortocoronary bypass graft
CPT/HCPCS: 36415; 71010; 80048; 80053; 80061; 81001; 81003; 82043; 82550; 82553; 82962; 83036; 83735; 84100; 84155; 84300; 84484; 85025; 85610; 85730; 93005; 93306; J1815